=== PATIENT | male | born 1940 | race Caucasian/White ===

== ENCOUNTER 2018-03-04 06:54 | Day surgery (SDC) | payer MEDICARE, SELFPAY ==
[2018-03-03 08:33] VITALS: BMI 28.2
[2018-03-04] VITALS (7 sets, daily range): BP systolic 131–148; BP diastolic 57–79; PULSE 60–89; RESP 10–17; TEMP 36–36.3; O2SAT 91–96; BMI 27.8
[2018-03-04] MEDS: LACTATED RINGERS 1,000 ML 100 ML IV (07:32)
--- NOTE | 2018-03-04 07:47 | PM.PREOP ---
Pre-operative Note Interval Note Pre-op Check: Yes History & Physical Reviewed by Physician and Yes Exam Performed Changes: No
[2018-03-04] MEDS: CEFAZOLIN 2 GM/100 ML FROZ.PIGGY IV (07:52)
--- NOTE | 2018-03-04 08:14 | SUR.OPER ---
Supine on padded OR bed, head on gel donut on foam block, arms secured on padded arm boards at <90 degrees abduction, legs uncrossed, safety belt at thigh, tape over blanket over lower legs.
[2018-03-04] MEDS: BUPIVACAINE 0.5% (PF) VIAL 30 ML INJ (08:20)
--- NOTE | 2018-03-04 08:49 | PM.OP.1 ---
Operative Date/Time/Diagnoses Date of procedure: 03/04/18 Time of procedure: 08:49 Pre-op diagnosis: Umbilical hernia reducible Post-op diagnosis: same Procedure & Clinicians Procedure: Repair of umbilical hernia with underlay of mesh. Same procedure as scheduled: Yes Indications: Symptomatic umbilical hernia Surgeon: Marcus Castro Click Yes if Unassisted: Yes Anesthesia Type: General Operative Notes Findings: Defect about 2by 2 cm Closure Type: primary Specimen(s): none sent Implants & Drains: 1.7 in diameter circular mesh placed in the preperitoneal space Estimated Blood Loss (mL): 5 Procedure in detail: The patient was placed supine on the operating room table and underwent general LMA anesthesia. He was prepped and draped in the usual fashion. Local anesthetic was infiltrated in a field block fashion and a curvilinear incision made to the right of the umbilicus. It was carried down to the level of the fascia. Hernia sac was readily identified from surrounding structures and a portion of the fat was resected due to the small size. The fascial edge was cleared of tissue and the preperitoneal fat dissected off the overlying muscular wall. A 1.7 in diameter circular mesh was placed under the fascial defect and then the tails were incorporated into the closure using a 1. Tycron suture. The subcu was closed with interrupted 3 0 Polysorb. The skin was closed with interrupted 4 0 Polysorb subcuticular stitches and Steri-Strips. Dressing was applied the patient was awakened and taken the recovery room extubated in good condition. Complications: none Condition: stable Disposition: PACU Plan for aftercare: Follow-up in office
[2018-03-04] MEDS: OXYCODONE/ACETAMINOPHEN 5/325 TABLET 1 TAB PO ×2 (09:12→09:45)
== END 2018-03-04 09:58 | disposition home or self-care (01) ==
PROVIDERS: Family Provider Family Medicine; PCP Family Medicine; Visit Provider Specialist
PROC: (CPT 49585; principal; 2018-03-04 07:45)
DX: K42.9 Umbilical hernia without obstruction or gangrene (principal)
CPT/HCPCS: 49585; C1781; J0690; J3010

== ENCOUNTER 2018-09-11 17:32 | Emergency (ER) | payer MEDICARE, SELFPAY ==
[2018-09-11 17:45] VITALS: BP 165/80; PULSE 88; RESP 13; TEMP 36.6; O2SAT 98
--- NOTE | 2018-09-11 18:03 | ED_ITS ---
HPI - Wound/Laceration General Chief Complaint: Wound/Laceration Stated Complaint: cut thumb on left thumb Time Seen by Provider: 09/11/18 18:02 Source: patient Mode of arrival: ambulatory Limitations: no limitations History of Present Illness HPI narrative: The patient lacerated his left thumb while cutting CABG at home prior to arrival. The laceration is adjacent to the nail bed, at the distal thumb. Initially the laceration would not stop bleeding. He does not take aspirin or blood thinners. With pressure and a bandage the laceration seems to have stopped. Related Data Home Medications Medication Instructions Recorded Confirmed multivitamin tablet 1 tab PO DAILY 03/02/18 04/20/18 vitamins A,C,K-xhap-mfyacu 1 tab PO BID 03/04/18 04/20/18 [PreserVision AREDS] Previous Rx's Medication Instructions Recorded alprazolam 0.25 mg tablet 0.25 mg PO .qday PRN #5 tab 04/20/18 prazosin 1 mg capsule 1 mg PO HS #90 cap 08/27/18 Allergies Allergy/AdvReac Type Severity Reaction Status Date / Time iodine Allergy Mild TOPICAL Verified 04/20/18 09:20 ONLY - RASH shellfish derived AdvReac Severe GI UPSET X Verified 04/20/18 09:20 MANY DAYS Review of Systems Constitutional Reports as per HPI, Denies body ache(s), Denies weakness and Reports other (No focal weakness) Integumentary/Breasts Denies erythema, Denies rash and Denies wounds Neurologic Denies sensory deficit and Denies weakness Hematologic/Lymphatic Denies easy bleeding and Denies easy bruising [facility] Medical History Impaired hearing (Acute) Impaired vision (Acute) PTSD (post-traumatic stress disorder) (Acute) Umbilical hernia (Acute) Dupuytren's contracture of right hand (Resolved) Surgical History History of hernia repair (Acute) History of laminectomy (Acute) Hx of bilateral cataract extraction (Acute) S/P trigger finger release (Acute) History of back surgery (Resolved) History of right inguinal hernia repair (Resolved) S/P right rotator cuff repair (Resolved) Social History household members: spouse Smoking Status: Former smoker alcohol intake: current Exam Const General: cooperative and well developed Nutritional Appearance: well nourished Orientation: alert, awake and oriented x3 Skin General: no rashes or lesions noted Neuro General: alert, oriented x3, gait normal and no focal motor deficits Speech: speech normal Extrem General: other (Small superficial laceration to the distal left thumb. The laceration is to the radial side of the nail. Bleeding is minimal. The wound is clean. Range of motion is intact.) Procedures Laceration Repair Laceration 1: Site: other (Thumb) Side (If applicable): left Size (cm): 1 Description: linear Depth: simple, single layer Pre-repair: wound explored and irrigated extensively Subcutaneous layer closed with: other (The wound was effectively closed with Dermabond. A bandage was then applied by her nurse. There are no complications.) Course Orders Ordered: ED Orders 09/11/18 18:28 Tetanus/ Diphtheria Toxoid IgG Stat Discontinued Medications Diphtheria/Tetanus/Acell Pertussis (Adacel) 0.5 ml IM .ONCE ONE Stop: 09/11/18 18:34 Last Admin: 09/11/18 18:36 Dose: 0.5 ml Discharge Plan Departure Patient Disposition: Home Clinical Impression: Laceration of left thumb Interventions: ED Discharge Assessment Last Done: 09/11/18 18:42 Instructions: DI for Laceration Repair With Dermabond Activity Restrictions/Additional Instructions: Keep the bandage on for 2 days. After 2 days you can take the bandage off. You may not need further care, but use Band-Aids if necessary. Return to the ER if necessary. Prescriptions: No Action alprazolam 0.25 mg tablet 0.25 mg PO .qday PRN (Reason: anxiety) Qty: 5 RF: 0 prazosin 1 mg capsule 1 mg PO HS Qty: 90 RF: 1 multivitamin [Daily Multi-Vitamin] tablet 1 tab PO DAILY RF: 0 vitamins A,C,W-cgfx-gqdvid [PreserVision AREDS] 14,320-226-200 lyqx-wi-jeax Capsule 1 tab PO BID RF: 0
[2018-09-11] MEDS: TET,DIPH,PERTUSS(ACELL),VAC/PF 0.5 ML SYRINGE IM (18:36)
[2018-09-11 19:24] VITALS: RESP 16
== END 2018-09-11 18:50 | disposition home or self-care (01) ==
PROVIDERS: Emergency Provider Emergency Medicine; PCP Family Medicine
DX: S61.012A Laceration without foreign body of left thumb without damage to nail, initial encounter (principal); W26.0XXA Contact with knife, initial encounter
CPT/HCPCS: 12001; 90471; 99283; 90715

== ENCOUNTER → 2018-09-24 11:31 | Outpatient (CLI) | payer MEDICARE, SELFPAY ==
[2018-09-24 12:00] LABS: Blood Urea Nitrogen 21 mg/dL (9-20); Estimated Glomerular Filt Rate > 60.0 mL/min (>60)
== END ==
PROVIDERS: PCP Family Medicine; Visit Provider Orthopaedic Surgery
DX: Z01.818 Encounter for other preprocedural examination (principal)
CPT/HCPCS: 36415; 82565; 84520

== ENCOUNTER → 2018-09-27 13:37 | Outpatient (CLI) | payer MEDICARE, SELFPAY ==
--- NOTE | 2018-09-27 | DI.MRI.S_ITS ---
PROCEDURE: MR LUMBAR SPINE WO/W CON INDICATIONS: RADICULOPATHY LUMBAR REGION TECHNIQUE: Noncontrast sagittal T1 spin echo and T2 fast spin echo, sagittal STIR, axial T1 and T2 fast spin echo through the lumbar spine. In cases with scoliosis, additional coronal T2 fast spin echo may be performed. After the administration of contrast, sagittal and axial T1 spin echo with fat saturation through the lumbar spine. COMPARISON: Located Within [facility], MR, L-SPINE WITHOUT CONTRAST, 05/22/2014, 8:38. Located Within [facility], CR, SPINE 1 VIEW ANY LEVEL, 06/13/2014, 14:54. Located Within [facility], CT, ANGIOGRAPHY CHEST, 06/21/2015, 9:13. [facility] [place], CR, XR LUMBAR SPINE 2 OR 3 VIEWS, 09/15/2018, 14:39. Located Within [facility], MR, L-SPINE WITH AND WITHOUT CONTR, 06/10/2010, 19:42. FINDINGS: Image quality: Excellent. Alignment and curvature: There is normal bony alignment. Marrow: Marrow is of normal overall signal. No acute vertebral body compression fractures. No suspicious marrow enhancement. Spinal cord: Conus medullaris terminates at the L1 level. Visualized spinal cord demonstrates normal signal, without suspicious enhancement. Paraspinous soft tissues: No paravertebral masses or abnormal enhancement. Peripelvic cysts are seen in each kidney. T12-L1: Mild degenerative disc that reduction and small posterior transverse disc bulge is present, with minimal left-sided foraminal stenosis and no spinal stenosis. L1-L2: Mild degenerative disc that reduction, small posterior broad-based transverse disc bulge. There is asymmetric facet osteoarthritis greater on the left than the right, with mild to moderate left and minimal right foraminal stenosis. L2-L3: Degenerative disc height reduction is mild to moderate, there is facet osteoarthritis it is symmetric bilaterally resulting in moderate bilateral foraminal stenosis and likely bilateral L2 nerve root impingement. L3-L4: The degenerative disc disease at this level is moderate, with only a small posterior transverse disc bulge. Facet osteoarthritis is moderately severe, with moderately severe right greater than left foraminal stenosis and likely no significant impingement on the course of the L3 nerve roots. Additionally, ligamentum flavum hypertrophy is present greater on the right than the left and there is resultant concentric spinal stenosis when all of these factors are taken into account. L4-L5: A the degenerative disc disease at this level is moderate, facet osteoarthritis is near severe. Foraminal stenosis is near severe. Bilateral L4 nerve root impingement would be expected. No significant left-sided spinal stenosis is seen. There is asymmetric right-sided mild spinal stenosis. L5-S1: Degenerative disc height reduction is mild, facet osteoarthritis is moderate, there is mild to moderate bilateral symmetric foraminal stenosis from facet osteoarthritis. IMPRESSION: The degenerative disc disease and facet osteoarthritis overall is moderately severe. Multilevel spinal and foraminal stenosis is present as discussed in detail by level in the body of the report above. No prior operative complication is found. No disc herniation is seen. There has been a mild degree of progression of degenerative disc disease and facet osteoarthritis in this patient over multiple prior LS-spine MRI studies, from 2008, 2009 and 2013. Dictated by: Sandro Lobo M.D. on 09/27/2018 at 15:49 Approved by: Sandro Lobo M.D. on 09/27/2018 at 15:58
== END ==
PROVIDERS: PCP Family Medicine; Visit Provider Orthopaedic Surgery
DX: M51.16 Intervertebral disc disorders with radiculopathy, lumbar region (principal); M47.26 Other spondylosis with radiculopathy, lumbar region; M47.27 Other spondylosis with radiculopathy, lumbosacral region; M48.061 Spinal stenosis, lumbar region without neurogenic claudication; M48.07 Spinal stenosis, lumbosacral region
CPT/HCPCS: 72158; A9579

== ENCOUNTER 2021-08-30 14:51 | Emergency (ER) | payer MEDICARE, SELFPAY ==
[2021-08-30 15:02] VITALS: BP 199/80; PULSE 89; RESP 16; TEMP 36.4; O2SAT 99; BMI 28.8
--- NOTE | 2021-08-30 15:11 | DI.RAD.S_ITS ---
PROCEDURE: XR ANKLE RT MIN 3V INDICATIONS: injury TECHNIQUE: 3 views of the ankle were acquired. COMPARISON: [facility], CR, XR TIBIA FIBULA RT 2V, 08/30/2021, 15:12. FINDINGS: Bones: No fractures or dislocations. Ankle mortise is normally aligned. No suspicious bony lesions. The talar dome demonstrates no clint abnormality. Age-appropriate bony degenerative changes are seen. Relatively prominent plantar and Achilles calcaneal spurs are seen. Soft tissues: No tibiotalar joint effusion. Achilles tendon appears normal. IMPRESSION: No displaced fractures are seen on these plain films. If there is focal tenderness, or other clinical concern for a fracture not seen on these images in this patient with a given history of trauma, please consider a dedicated CT or a short-term followup plain film series (in 1-2 weeks) for further evaluation. Dictated by: Jigar Cortez M.D. on 08/30/2021 at 14:50 Approved by: Jigar Cortez M.D. on 08/30/2021 at 14:50
--- NOTE | 2021-08-30 15:11 | DI.RAD.S_ITS ---
PROCEDURE: XR TIBIA FUBULA RT 2V INDICATIONS: injury TECHNIQUE: 2 views of the tibia and fibula were acquired. COMPARISON: None. FINDINGS: Bones: No a fractures or dislocations. Acute there is a small bone fragment seen along the lateral aspect of the lateral tibial spine, which may be related to a remote injury. No suspicious bony lesions. Age-appropriate bony degenerative changes are seen. Soft tissues: No suspicious soft tissue calcifications or masses. IMPRESSION: No acute plain film abnormality is detected Dictated by: Jigar Cortez M.D. on 08/30/2021 at 14:49 Approved by: Jigar Cortez M.D. on 08/30/2021 at 14:50
[2021-08-30] MEDS: IBUPROFEN 400 MG TABLET 800 MG PO (15:24)
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
[2021-08-30 16:43] VITALS: BP 168/73; PULSE 75; RESP 16; O2SAT 95
== END 2021-08-30 16:46 | disposition home or self-care (01) ==
PROVIDERS: Emergency Provider Nurse Practitioner Critical Care Medicine; PCP Family Medicine
DX: S93.401A Sprain of unspecified ligament of right ankle, initial encounter (principal); S80.11XA Contusion of right lower leg, initial encounter; Z87.891 Personal history of nicotine dependence; S90.31XA Contusion of right foot, initial encounter; X50.1XXA Overexertion from prolonged static or awkward postures, initial encounter; Y93.55 Activity, bike riding
CPT/HCPCS: 73590; 73610; 99283; 99284

== ENCOUNTER 2022-05-29 07:21 | Emergency (ER) | payer MEDICARE, SELFPAY ==
[2022-05-29 07:27] VITALS: BP 184/90; PULSE 83; RESP 18; TEMP 36.2; O2SAT 98
[2022-05-29 07:31] VITALS: PULSE 83; O2SAT 98
--- NOTE | 2022-05-29 07:38 | DI.RAD.S_ITS ---
PROCEDURE: XR CHEST 1V INDICATIONS: chest pain TECHNIQUE: One view of the chest was acquired. COMPARISON: None. FINDINGS: Surgical changes and devices: None. Lungs and pleura: Lung volumes are low. Airspace consolidation is present at the left lung base. There may be a small left effusion. Mediastinum: Mediastinal contours appear normal. Heart size is mildly enlarged. Bones and chest wall: No suspicious bony lesions. Overlying soft tissues appear unremarkable. IMPRESSION: Left basilar pulmonary radiopacities. Differential considerations include atelectasis, aspiration, and infection. Short interval followup is recommended with resolution of the patient's symptoms to ensure there is no underlying pulmonary pathology. Dictated by: Suzette Beltrán M.D. on 05/29/2022 at 8:26 Approved by: Suzette Beltrán M.D. on 05/29/2022 at 8:27
[2022-05-29 07:48] LABS: Add Manual Diff / Slide Review NO; Basophils Absolute Auto 100 /uL (0-100); Basophils Percent Auto 1.3 % (0-2); Eosinophils Absolute Auto 400 /uL (0-450); Eosinophils Percent Auto 7.1 % (2-4); Hematocrit 43.7 % (41-53); Lymphocytes Absolute Auto 1400 /uL (1100-4500); Lymphocytes Percent Auto 24.7 % (25-40); Mean Corpuscular HGB Conc 34.2 % (30-36); Mean Corpuscular Hemoglobin 32.4 PG (26-34); Mean Corpuscular Volume 94.6 fL (80-100); Monocytes Absolute Auto 600 /uL (0-900); Monocytes Percent Auto 10.3 % (3-14); Neutrophils Absolute Auto 3300 /uL (1500-7000); Neutrophils Percent Auto 56.6 % (50-75); Platelet Count 184 X10^3/uL (150-400); Red Blood Cell Count 4.62 X10^6/uL (4.5-5.9); Red Cell Distribution Width 14.8 % (11.6-14.8); White Blood Cell Count 5.8 X10^3/uL (4.5-11.0)
[2022-05-29 07:53] LABS: Alanine Aminotransferase 20 IU/L (<50); Albumin 4.1 g/dL (3.5-5.0); Albumin Globulin Ratio 1.4 (1.0-2.8); Alkaline Phosphatase 65 U/L (38-126); Aspartate Aminotransferase 29 IU/L (17-59); BUN Creatinine Ratio 28.6 (6-22); Bilirubin Total 0.8 mg/dL (0.2-1.3); Blood Urea Nitrogen 24 mg/dL (9-20); Calcium 8.8 mg/dL (8.4-10.2); Carbon Dioxide 26 mmol/L (22-32); Chloride 106 mmol/L (98-107); Creatine Kinase 67 U/L (55-170); Estimated Glomerular Filt Rate > 60 mL/min (>60); Globulin 2.9 g/dL (1.7-4.1); Glucose 105 mg/dL (80-110); HEMOLYSIS 16 (0-50); Lipase 55 U/L (23-300); Potassium 4.1 mmol/L (3.4-5.1); Sodium 140 mmol/L (137-145)
--- NOTE | 2022-05-29 07:56 | ED_ITS ---
HPI - General Adult General Chief complaint: Syncope Stated complaint: Fainting spells worsening to falls Time Seen by Provider: 05/29/22 07:37 Source: patient Mode of arrival: Family Vehicle Limitations: no limitations History of Present Illness HPI narrative: Patient is an 82-year-old male who is relatively healthy. states he has had issues with hypoglycemia in the past. Also has fairly severe PTSD. Is here for evaluation of several independent episodes where he states he is either almost passed out or actually passed out. For the past couple months he has had independent episodes or occasionally he becomes lightheaded. He states that it feels like the room is closing in on him. Start getting ringing in his ears. He is never passed out before until this Thursday. This Thursday he states that he was getting his recumbent bike out of the garage. He went back through the house to close the garage door and cut out the front or and during this process the events happened again. He states he actually did pass out. He is unsure as to how long he was out. He did not injure anything during this time. Prior to the events he is not having chest pain, palpitations, or headaches. He states t hat he is getting somewhat short of breath but just during the episodes. This morning he states that he was waking up. He rolled over and was still in bed. He was lying in bed when the events happened again. He did not have vertigo this morning. He currently is asymptomatic. Has not been evaluated for these symptoms. Related Data Home Medications Medication Instructions Recorded Confirmed multivitamin (Daily Multi-Vitamin 1 tab PO DAILY 03/02/18 06/12/21 tablet) vitamins A,C,E-yxzu-wssrno 14,320 1 tab PO BID 03/04/18 06/12/21 unit-226 mg-200 unit capsule (PreserVision AREDS) cholecalciferol (vitamin D3) 25 25 mcg PO DAILY 06/12/21 06/12/21 mcg (1,000 unit) capsule Previous Rx's Medication Instructions Recorded prazosin 1 mg capsule 1 mg PO BID PRN 05/07/21 Nightmares/physiological hyperarousal #180 caps Allergies Allergy/AdvReac Type Severity Reaction Status Date / Time iodine Allergy Mild TOPICAL Verified 05/29/22 07:48 ONLY - RASH shellfish derived AdvReac Severe GI UPSET X Verified 05/29/22 07:48 MANY DAYS Review of Systems Review of Systems ROS Unobtainable: All systems reviewed & are unremarkable except as noted in HPI and below Patient History Medical History (Updated 05/29/22 @ 09:44 by Lupillo Shetty DO) Dupuytren's contracture of right hand Impaired hearing Impaired vision PTSD (post-traumatic stress disorder) Umbilical hernia Surgical History History of back surgery History of hernia repair History of laminectomy History of right inguinal hernia repair Hx of bilateral cataract extraction S/P right rotator cuff repair S/P trigger finger release Social History household members: spouse Smoking Status: Former smoker alcohol intake: current Smoking Status: Former smoker tobacco type: cigarettes alcohol intake frequency: 0-2 drinks per day Alcohol type: wine Substance Use Type: does not use Exam Initial Vital Signs Initial Vital Signs: Vital Signs Temperature 97.2 F L 05/29/22 07:27 Pulse Rate 83 05/29/22 07:27 Respiratory Rate 18 05/29/22 07:27 Blood Pressure 184/90 H 05/29/22 07:27 Pulse Oximetry 98 05/29/22 07:27 Oxygen Delivery Method 05/29/22 07:27 Const General: cooperative, comfortable and well developed HENMT Head: normal to inspection and normocephalic Chest Chest: No tenderness Resp Effort & Inspection: normal respiratory effort Auscultation: clear to auscultation bilaterally Cardio Rate: regular rate Rhythm: regular rhythm Heart Sounds: no murmurs GI Inspection: normal to inspection and non-distended Skin General: no rashes or lesions noted Neuro General: patient alert, patient awake, patient oriented x3 and moves all extremities Cognition: normal cognition Speech: speech normal Motor: muscle tone normal throughout Extrem General: normal to inspection and capillary refill normal Psych Appearance: grossly normal and well kempt Course Orders Ordered: ED Orders 05/29/22 07:33 Complete Blood Count AUTO DIFF Stat Comprehensive Metabolic Panel Stat Lipase Stat Magnesium Stat Troponin & CK Cardiac Panel Stat 05/29/22 07:38 XR chest 1V Stat EKG-12 Lead Stat Vital Signs Vital signs: Vital Signs - 8 hr 05/29/22 07:27 05/29/22 07:31 05/29/22 08:00 Temperature 97.2 F L Pulse Rate 83 83 78 Respiratory Rate 18 Blood Pressure 184/90 H Pulse Oximetry 98 98 95 Oxygen Delivery Method Room Air 05/29/22 08:01 05/29/22 08:01 05/29/22 08:30 Temperature Pulse Rate 79 Respiratory Rate Blood Pressure 171/74 H 166/75 H Pulse Oximetry 95 Oxygen Delivery Method 05/29/22 08:30 Temperature Pulse Rate 78 Respiratory Rate Blood Pressure Pulse Oximetry 94 Oxygen Delivery Method Medical Decision Making Lab Data Lab results reviewed: Yes I reviewed the patient's lab results. Result diagrams: 05/29/22 07:33 05/29/22 07:33 Labs: Lab Results 05/29/22 05/29/22 Range/Units 07:33 07:33 WBC 5.8 (4.5-11.0) X10^3/uL RBC 4.62 (4.5-5.9) X10^6/uL Hgb 15.0 (13.5-17.5) g/dL Hct 43.7 (41-53) % MCV 94.6 (80-100) fL MCH 32.4 (26-34) PG MCHC 34.2 (30-36) % RDW 14.8 (11.6-14.8) % Plt Count 184 (150-400) X10^3/uL Neut % (Auto) 56.6 (50-75) % Lymph % (Auto) 24.7 L (25-40) % Gillespie % (Auto) 10.3 (3-14) % Eos % (Auto) 7.1 H (2-4) % Baso % (Auto) 1.3 (0-2) % Neut # (Auto) 3300 (8873-1946) /uL Lymph # (Auto) 1400 (6128-2993) /uL Gillespie # (Auto) 600 (0-900) /uL Eos # (Auto) 400 (0-450) /uL Baso # (Auto) 100 (0-100) /uL Sodium 140 (137-145) mmol/L Potassium 4.1 (3.4-5.1) mmol/L Chloride 106 (98-107) mmol/L Carbon Dioxide 26 (22-32) mmol/L BUN 24 H (9-20) mg/dL Creatinine 0.84 (0.66-1.25) mg/dL Estimated GFR > 60 (>60) mL/min BUN/Creatinine Ratio 28.6 H (6-22) Glucose 105 (80-110) mg/dL Calcium 8.8 (8.4-10.2) mg/dL Magnesium 2.0 (1.6-2.3) mg/dL Total Bilirubin 0.8 (0.2-1.3) mg/dL AST 29 (17-59) IU/L ALT 20 (<50) IU/L Alkaline Phosphatase 65 (38-126) U/L Total Creatine Kinase 67 (55-170) U/L CK-MB (CK-2) TNP CK-MB (CK-2) Rel Index TNP Troponin I 0.024 (0.01-0.034) ng/mL Total Protein 7.0 (6.3-8.2) g/dL Albumin 4.1 (3.5-5.0) g/dL Globulin 2.9 (1.7-4.1) g/dL Albumin/Globulin Ratio 1.4 (1.0-2.8) Lipase 55 (23-300) U/L Imaging Data Chest x-ray: Radiologist's Impression: [address] [address] XRay Report Signed Patient: Patrick Zhang MR#: [id number] : 1940 Acct:[id number] Age/Sex: 82 / M Date of Service: 05/29/22 Loc: ED Accession Number: [id number] ?? Procedure: XR chest 1V Ordering Provider: Lupillo Shetty D.O. PROCEDURE:? XR CHEST 1V ? INDICATIONS:? chest pain ? TECHNIQUE:? One view of the chest was acquired.? ? COMPARISON:? None. ? FINDINGS:? ? Surgical changes and devices:? None.? ? Lungs and pleura:? Lung volumes are low.? Airspace consolidation is present at the left lung base.? There may be a small left effusion. ? Mediastinum:? Mediastinal contours appear normal.? Heart size is mildly enlarged. ? Bones and chest wall:? No suspicious bony lesions.? Overlying soft tissues appear unremarkable.? ? IMPRESSION:? Left basilar pulmonary radiopacities.? Differential considerations include atelectasis, aspiration, and infection. Short interval followup is recommended with resolution of the patient's symptoms to ensure there is no underlying pulmonary pathology. ? ? ? Dictated by: Suzette Beltrán M.D. on 05/29/2022 at 8:26 ? ? Approved by: Suzette Beltrán M.D. on 05/29/2022 at 8:27? ECG Data Attestation: I personally reviewed and interpreted this ECG as follows: Prior ECG tracings: available for review Interpretation: Sinus rhythm Ventricular rate 80 Left axis deviation Left bundle branch no ST T wave changes MDM Narrative Medical decision making narrative: Workup here in the emergency department is relatively unremarkable. His last EKG was from 2018. He did not have a left bundle branch block at that time. He is not having chest pain. No shortness of breath. Symptoms he presents with today have been off and on for the past several weeks. Had a discussion with him regarding this. He is a follow-up with his primary doctor on Thursday of next week. Informed him he should talk with his primary doctor about a Holter monitor. He was given return precautions. He expressed understanding and agreement. Discharge Plan Departure Patient Disposition: Home Clinical Impression: Syncope Instructions: DI for Syncope in Adults (Fainting) Activity Restrictions/Additional Instructions: I recommend that you continue to take all of your medications as directed. Keep your appointment that you have with your primary doctor next week. I do recommend that you talk with him about the indications for a Holter monitor. Return to the emergency department for any new or worsening symptoms. Prescriptions: No Action cholecalciferol (vitamin D3) 25 mcg (1,000 unit) capsule 25 mcg PO DAILY prazosin 1 mg capsule 1 mg PO BID PRN (Reason: Nightmares/physiological hyperarousal) Qty: 180 3RF multivitamin [Daily Multi-Vitamin] tablet 1 tab PO DAILY vitamins A,C,E-qwiv-yjtikv [PreserVision AREDS] 14,320-226-200 [id number] Capsule 1 tab PO BID Referrals: Stefan Johnston MD [Primary Care Provider] -
[2022-05-29 08:00] VITALS: PULSE 78; O2SAT 95
[2022-05-29 08:01] VITALS: BP 171/74; PULSE 79; O2SAT 95
[2022-05-29 08:05] LABS: Troponin I 0.024 ng/mL (0.01-0.034)
[2022-05-29 08:30] VITALS: BP 166/75; PULSE 78; O2SAT 94
[2022-05-29 10:36] LABS: Bacteria Urine None Seen; Culture Indicated Urine Cult Not Indicated; RBC Urine 1-5/HPF (0-5/HPF); WBC Urine None Seen (0-5/HPF)
== END 2022-05-29 10:24 | disposition home or self-care (01) ==
PROVIDERS: Emergency Provider Emergency Medicine; PCP Family Medicine
DX: R55 Syncope and collapse (principal); R07.9 Chest pain, unspecified
CPT/HCPCS: 36415; 71045; 80053; 81003; 81015; 82550; 83690; 83735; 84484; 85025; 93005; 93010; 99283; 99284

== ENCOUNTER → 2022-10-02 13:11 | Outpatient (CLI) | payer MEDICARE, SELFPAY ==
[2022-10-02 14:08] LABS: Alanine Aminotransferase 25 IU/L (<50); Albumin 4.2 g/dL (3.5-5.0); Albumin Globulin Ratio 1.4 (1.0-2.8); Alkaline Phosphatase 90 U/L (38-126); Aspartate Aminotransferase 32 IU/L (17-59); BUN Creatinine Ratio 29.1 (6-22); Bilirubin Total 0.5 mg/dL (0.2-1.3); Blood Urea Nitrogen 23 mg/dL (9-20); Calcium 9.2 mg/dL (8.4-10.2); Carbon Dioxide 25 mmol/L (22-32); Chloride 103 mmol/L (98-107); Estimated Glomerular Filt Rate > 60 mL/min (>60); Glucose 103 mg/dL (80-110); HEMOLYSIS 31 (0-50); Potassium 4.3 mmol/L (3.4-5.1); Sodium 138 mmol/L (137-145); Total Protein 7.2 g/dL (6.3-8.2)
== END ==
PROVIDERS: PCP Family Medicine; Referring Provider Internal Medicine Cardiovascular Disease; Visit Provider Internal Medicine Cardiovascular Disease
DX: I42.8 Other cardiomyopathies (principal)
CPT/HCPCS: 36415; 80053

== ENCOUNTER → 2022-12-01 07:03 | Outpatient (CLI) | payer MEDICARE, SELFPAY ==
--- NOTE | 2022-12-01 | DI.ECHO.S_ITS ---
[facility]---------+ [facility] +---------+ : : [address] : : : : [id number] : : : : Phone: [phone]+ Echocardiogram Report + + :Name: SISSY AVILA Study Date: 12/01/2022 Height: 72 in : :[facility] ReadingLocation: Weight: 230 lb : : Gender: Male BSA: 2.3 m2 : :: 1940 Age: 82 yrs BP: 130/60 mmHg: :Reason For Study: OTHER CARDIOMYOPATHIES HR: 78 : :Ordering Physician: DOUGIE, : :ALEX Performed By: OSVALDO CARVAJAL : :Referring: ALEX CONSTANTINO : + + Interpretation Summary Limited study. Mild concentric left ventricular hypertrophy with ejection fraction 50-55%. Mild aortic stenosis. The peak aortic velocity is 2.9 m/sec. Moderate aortic regurgitation. Comparison is made with the echocardiogram of 07/27/2022, LV function has improved. Procedure: A two-dimensional transthoracic echocardiogram with color flow and Doppler was performed in limited views only to assess ventricular function and aortic stenosis. The study quality was technically adequate. Comparison is made with the echocardiogram of 07/27/2022. The patient was in normal sinus rhythm during the exam. Left Ventricle: The left ventricle is normal in size. There is mild concentric left ventricular hypertrophy. The ejection fraction is estimated to be 50-55%. There are no focal wall motion abnormalities. Right Ventricle: The right ventricle is normal in size and function. Aortic Valve: The aortic valve is mildly calcified. There is mild aortic stenosis. The aortic valve area indexed to the BSA is 0.73 . The peak aortic velocity is 2.9 m/sec. The aortic valve mean gradient is 19 mmHg. There is moderate aortic regurgitation. Tricuspid Valve: There is mild tricuspid regurgitation. The right ventricular systolic pressure is estimated to be at least 23 mmHg based on an estimated right atrial pressure of 3 mm Hg. Great Vessels: The aortic root is normal size. The ascending aorta is mild- moderately enlarged. The ascending aorta measures 4.2 cm. The IVC is of normal diameter and collapses greater than 50% with a sniff. This suggests a low right atrial pressure of 3 mm Hg. Pericardium/ Pleura There is a trivial pericardial effusion noted. There is no pleural effusion. MMode/2D Measurements & Calculations LVIDd: 5.0 cm LVOT diam: 2.0 cm LVIDs: 3.6 cm asc Aorta Diam: 4.2 cm FS: 28.0 % IVSd: 1.1 cm LVPWd: 1.2 cm LV marte. diameter/BSA (cm/m^2): 2.2 LV sys. diameter/BSA (cm/m^2): 1.6 TAPSE: 1.9 cm Doppler Measurements & Calculations Ao V2 max: 288.4 cm/sec LVOT Max Roosevelt: 148.6 cm/sec Ao V2 mean: 214.4 cm/sec LV V1 max P.8 mmHg Ao max P.3 mmHg LV V1 VTI: 30.9 cm Ao mean P.3 mmHg STEPHANIE(I,D): 1.7 cm2 Ao V2 VTI: 58.7 cm STEPHANIE(V,D): 1.6 cm2 sev ratio: 0.53 STEPHANIE indexed to BSA (cm^2/m^2): 0.73 MV E max roosevelt: 50.8 cm/sec TR max roosevelt: 227.9 cm/sec MV A max roosevelt: 92.6 cm/sec TR max P.8 mmHg MV E/A: 0.55 Med Peak E' Roosevelt: 4.5 cm/sec E/E' med: 11.4 Lat Peak E' Roosevelt: 4.2 cm/sec E/E' lat: 12.2 E/e' average: 11.8 MV dec time: 0.26 sec SV(LVOT): 97.2 ml Electronically signed by: Hugh Johnson on Reading Physician:12/01/2022 01:38 PM
== END ==
PROVIDERS: PCP Family Medicine; Referring Provider Internal Medicine Cardiovascular Disease; Visit Provider Internal Medicine Cardiovascular Disease
DX: I08.2 Rheumatic disorders of both aortic and tricuspid valves (principal); I77.89 Other specified disorders of arteries and arterioles; I42.8 Other cardiomyopathies
CPT/HCPCS: 93307

== ENCOUNTER → 2024-04-05 09:54 | Outpatient (CLI) | payer MEDICARE, SELFPAY ==
--- NOTE | 2024-04-05 09:56 | DI.RAD.S_ITS ---
PROCEDURE: XR TOE LT MIN 2V INDICATIONS: TOE PAIN TECHNIQUE: 3 views of the 4th toe(s) acquired. COMPARISON: None. FINDINGS: Bones: Mild scattered degenerative changes. There is no acute displaced fracture or dislocation. Soft tissues: No suspicious calcifications. Possible enthesopathy at the 5th metatarsal base is present. IMPRESSION: Mild scattered degenerative changes. No acute radiographic abnormality. If there is high concern for further derangement, consider MRI evaluation. Dictated by: Rufino Infante M.D. on 04/05/2024 at 16:09 Approved by: Rufino Infante M.D. on 04/05/2024 at 16:11
== END ==
LOC: RAD 09:55
PROVIDERS: PCP Family Medicine; Referring Provider Registered Nurse; Visit Provider Registered Nurse
DX: M79.675 Pain in left toe(s) (principal); G89.29 Other chronic pain
CPT/HCPCS: 73660